=== PATIENT | female | born 1965 | race Caucasian/White ===

== ENCOUNTER 2022-01-25 17:44 | Outpatient (REF) | payer BC, SELFPAY ==
--- NOTE | ~2022-01-25 | MR_ITS ---
EXAMINATION: MRI OF THE BRAIN WITH AND WITHOUT IV CONTRAST INDICATION: Occipital parasagittal lesion 2016. COMPARISON: None available at the time of dictation. TECHNIQUE: Multiplanar multisequence MR imaging of the brain was obtained without and following the administration of 5.5 mL of Gadavist without complication. FINDINGS: There is no pathologic intracranial enhancement. There are nonenhancing T2 signal changes involving the right parasagittal frontoparietal lobe. This finding is described on report dated 10/31/2015 however the images from this study are not available for comparison at the time of dictation. If the prior study becomes available, an addendum will be made. 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 There is no hydrocephalus, extra-axial surface collection, or herniation. The major flow voids at the skull base are preserved. There is no acute infarct on diffusion-weighted imaging. There is no intracranial hemorrhage on the gradient recalled echo acquisition. The midline structures are normal. The cerebellar tonsils are normally positioned. The cerebellum and brainstem are normal. The craniocervical junction is normal. Osseous marrow signal intensity is homogenous. The visualized soft tissues are unremarkable. MR/MR head/brain wo/w con IMPRESSION: - There are nonenhancing T2 signal changes involving the right parasagittal frontoparietal lobe. This finding is described on report dated 10/31/2015 however the images from this study are not available for comparison at the time of dictation. If the prior study becomes available, an addendum will be made. If this lesion demonstrate long-term stability, major differential considerations include a multinodular and vacuolating neuronal tumor (MVNT), cortical dysplasia, or less likely a DNET. 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
== END 2022-01-25 17:45 | disposition home or self-care (01) ==
LOC: HO.MRI 17:44
PROVIDERS: Visit Provider Psychiatry & Neurology Neurology
DX: G93.89 Other specified disorders of brain (principal)
CPT/HCPCS: 70553; A9585